=== PATIENT | female | born 1940 | race Caucasian/White ===

== ENCOUNTER 2017-01-01 08:13 | Day surgery (SDC) | payer MEDICARE, OTHER ==
--- NOTE | ~2017-01-01 | EGD ---
EGD REPORT [facility] [address] [id number] NAME: RICKY ONEILL : [birth year] STATUS : REG [facility]#: [id number] AGE: 76 ADM/REG DATE : 01/01/17 MR#: [id number] REPORT SERV DATE: 01/01/17 DICTATED BY: MEHUL MARQUEZ III DATE: 01/01/17 REPORT STATUS : Draft [facility] DATE: 01/01/17 Endoscopy Center Patient Name: Ricky Oneill Date of : 1940 Attending MD: MEHUL MARQUEZ III, MD Procedure Date No Time: 01/01/2017 Procedure: Colonoscopy Indications: High risk colon cancer surveillance: Personal history of colon cancer Referring MD: BRITTNEE PAULINO Medicines: Propofol per Anesthesia Complications: No immediate complications. Procedure: Pre-Anesthesia Assessment: - ASA Grade Assessment: III - A patient with severe systemic disease. After I obtained informed consent, the scope was passed under direct vision. Throughout the procedure, the patient's blood pressure, pulse, and oxygen saturations were monitored continuously. The PCF [id number] was introduced through the anus and advanced to the terminal ileum. The colonoscopy was performed with ease. The patient tolerated the procedure well. The quality of the bowel preparation was good. Findings: Multiple diverticula were found in the sigmoid colon. There was evidence of a prior end-to-end colo-colonic anastomosis in the sigmoid colon. This was patent. This was characterized by healthy appearing mucosa. This was traversed. A sessile polyp was found in the descending colon. The polyp was 6 mm in size. The polyp was removed with a cold snare. Resection and retrieval were complete. A sessile polyp was found in the sigmoid colon. The polyp was 5 mm in size. The polyp was removed with a cold biopsy forceps. Resection and retrieval were complete. The terminal ileum appeared normal. Impression: - Diverticulosis in the sigmoid colon. - Patent end-to-end colo-colonic anastomosis. - One 6 mm polyp in the descending colon. Resected and retrieved. - One 5 mm polyp in the sigmoid colon. Resected and retrieved. Recommendation: - Patient has a contact number available for EGD REPORT [address] [address] NAME: RICKY ONEILL : [birth year] STATUS : REG [facility] [place] PAT#: [id number] AGE: 76 ADM/REG DATE : 01/01/17 MR#: [id number] REPORT SERV DATE: 01/01/17 DICTATED BY: MEHUL MARQUEZ III DATE: 01/01/17 REPORT STATUS : Draft TRANSCRIBED BY: [employer] DATE: 01/01/17 emergencies. The signs and symptoms of potential delayed complications were discussed with the patient. Return to normal activities tomorrow. Written discharge instructions were provided to the patient. - Discharge patient to home. - High fiber diet indefinitely. - Continue present medications. - Await pathology results. - Repeat colonoscopy after studies are complete for surveillance based on pathology results. Procedure Code(s): --- Professional --- 32366, Colonoscopy, flexible, proximal to splenic flexure; with removal of tumor(s), polyp(s), or other lesion(s) by snare technique 01611, 59, Colonoscopy, flexible, proximal to splenic flexure; with biopsy, single or multiple Diagnosis Code(s): --- Professional --- K57.30, Diverticulosis of large intestine without perforation or abscess without bleeding Z98.0, Intestinal bypass and anastomosis status D12.5, Benign neoplasm of sigmoid colon D12.4, Benign neoplasm of descending colon Z85.038, Personal history of other malignant neoplasm of large intestine CPT copyright 2013 [employer]. All rights reserved. The codes documented in this report are preliminary and upon hcc coders review may be revised to meet current compliance requirements. MEHUL MARQUEZ III, MD 01/01/2017 10:33 AM This report has been signed electronically. Number of Addenda: 0 Note Initiated On: 01/01/2017 10:05 AM Scope Withdrawal Time 0 hours 15 minutes 1 second [address] [id number]
[~2017-01-01 08:13] MED LIST: ASAB PO; BIOTIN5 MG PO; CORDARONE PO; COREG12 PO; ENALAPRIL; GLUCPH PO; HCTZ; KLOR-CON M1010 MEQ PO; L20 PO; MAGOX4 PO; MULTIVITAMI1 PO; PEPCID40 MG OR; PRILO PO; VASERETIC; VASERETIC5 PO; [UNRECOGNIZED DRUG - OTHER]
== END 2017-01-01 23:59 | disposition home or self-care (01) ==
LOC: DMU 08:13
PROVIDERS: Internal Medicine Gastroenterology
PROC: 0DBN8ZZ Excision of Sigmoid Colon, Via Natural or Artificial Opening Endoscopic (ICD-10-PCS; 2017-01-01)
PROC: 0DBM8ZZ Excision of Descending Colon, Via Natural or Artificial Opening Endoscopic (ICD-10-PCS; principal; 2017-01-01 10:00)
DX: D12.5 Benign neoplasm of sigmoid colon (principal); Z12.11 Encounter for screening for malignant neoplasm of colon; K63.5 Polyp of colon; K57.30 Diverticulosis of large intestine without perforation or abscess without bleeding; Z98.0 Intestinal bypass and anastomosis status; Z85.038 Personal history of other malignant neoplasm of large intestine
CPT/HCPCS: 88305